=== PATIENT | female | born 1995 | race Hispanic/Latino ===

== ENCOUNTER 2017-10-30 20:13 | Emergency (ER) | payer OTHER ==
[~2017-10-30] VITALS: Ht 157.5 cm; Wt 90.7 kg
[2017-10-30 21:04] VITALS: BP 136/88
== END 2017-10-30 21:15 | disposition home or self-care (01) ==
LOC: FSED 20:13
DX: R50.9 Fever, unspecified (principal); R51 Headache; B34.9 Viral infection, unspecified
CPT/HCPCS: 83518; 87400; 99282

== ENCOUNTER 2024-03-07 11:24 | Emergency (ER) | payer OTHER ==
[~2024-03-07] VITALS: Ht 154.9 cm; Wt 86.8 kg
[2024-03-07 11:29] VITALS: TEMP 97.9
[2024-03-07] MEDS ORDERED: IOPAMIDOL 370 MG/ML 100 ML INFUS..BTL INJ ONE (11:44)
[2024-03-07] MEDS ORDERED: ONDANSETRON HCL INJ 2MG/ML 2ML 2 MG/ML VIAL ONE (12:17)
[2024-03-07] MEDS: ONDANSETRON HCL INJ 2MG/ML 2ML 2 MG/ML VIAL IV STA (12:19)
[2024-03-07] MEDS: FAMOTIDINE 20 MG/2 ML VIAL IV STA (12:19)
[2024-03-07] MEDS: LACTATED RINGER'S 1,000 ML INJ ONE (12:19)
[2024-03-07] MEDS: POTASSIUM CHLORIDE 10MEQ/100ML 100 ML IV ONE (12:57)
[2024-03-07] MEDS ORDERED: ONDANSETRON ODT4 MG PO (14:02)
[2024-03-07] MEDS ORDERED: PEPCID20 MG PO (14:02)
[2024-03-07 14:33] VITALS: PULSE 84; RESP 14; O2SAT 99
== END 2024-03-07 14:33 | disposition home or self-care (01) ==
LOC: FSED 11:29
DX: R11.2 Nausea with vomiting, unspecified (principal); K29.70 Gastritis, unspecified, without bleeding; K21.9 Gastro-esophageal reflux disease without esophagitis; R10.13 Epigastric pain; Z98.84 Bariatric surgery status
CPT/HCPCS: 74177; 80053; 80076; 81003; 81025; 85025; 96374; 96375; 99284; J2405; J3480; J7121; Q9967